=== PATIENT | female | born 1960 | race African-American/Black ===

== ENCOUNTER 2023-12-30 14:16 | Emergency (ER) | payer MEDICAID ==
[~2023-12-30] VITALS: Ht 170.2 cm; Wt 112.0 kg
[2023-12-30 14:44] LABS: EOSINOPHILS % 3.7 % (0.0-5.0); HEMATOCRIT. 26.7 % (36.0-48.0); LYMPHOCYTES % 27.3 % (20.0-50.0); MEAN CORPUSCULAR HEMOGLOBIN 29.4 pg (28.0-32.0); MEAN CORPUSCULAR HGB CONC 29.9 g/dL (31.0-37.0); MEAN CORPUSCULAR VOLUME 98.2 fL (81.0-99.0); MEAN PLATELET VOLUME 7.4 fl (7.4-10.4); MONOCYTES % 6.6 % (2.0-8.0); NEUTROPHILS % 61.4 % (40.0-76.0); PLATELET 215 x1000/uL (130-400); RED BLOOD CELL COUNT 2.72 mill/uL (4.2-5.4); RED CELL DISTRIBUTION WIDTH 22.1 % (11.6-14.6)
[2023-12-30 14:46] LABS: ADD RBC MORPHOLOGY YES; DIFFERENTIAL COMMENT 1
[2023-12-30 14:52] LABS: CHLORIDE 105 mEq/L (98-107); POTASSIUM 3.5 mEq/L (3.5-5.1); SODIUM 139 mEq/L (136-145)
[2023-12-30 14:53] LABS: CARBON DIOXIDE 27 mEq/L (21-32)
[2023-12-30 14:55] LABS: INR 1.1; PROTHROMBIN TIME 12.3 sec (9.6-11.0)
[2023-12-30 14:58] LABS: CREATININE 0.7 mg/dL (0.6-1.0); GLUCOSE 119 mg/dL (70-105)
[2023-12-30 15:00] LABS: ALANINE AMINOTRANSFERASE 25 IU/L (10-49); ALBUMIN 3.2 g/dL (3.2-4.8); ASPARTATE AMINOTRANSFERASE 68 IU/L (<34); BILIRUBIN TOTAL 0.3 mg/dL (0.1-1.0); TROPONIN I HIGH SENSITIVITY 5 ng/L (3.0-34)
[2023-12-30 15:01] LABS: PROTEIN TOTAL 6.8 g/dL (6.0-8.3)
[2023-12-30 15:16] LABS: UREA NITROGEN BLOOD < 5 mg/dL (9-23)
[2023-12-30 16:39] LABS: ANISOCYTOSIS 1+; PLATELET ESTIMATE NORMAL
[2023-12-30 18:24] VITALS: PULSE 80; RESP 20; O2SAT 100
[2023-12-30] MEDS: ALBUTEROL (0.5%) 2.5MG/0.5ML NEB HHN ONE (18:24)
[2023-12-30 20:35] VITALS: BP 106/84; PULSE 88; RESP 16; TEMP 98.2
[2023-12-30] MEDS ORDERED: IOHEXOL-350 100 ML BOTTLE ONE (23:05)
== END 2023-12-30 20:49 | disposition home or self-care (01) ==
LOC: ER 14:16
DX: R60.9 Edema, unspecified (principal); R06.00 Dyspnea, unspecified; I50.9 Heart failure, unspecified; J44.9 Chronic obstructive pulmonary disease, unspecified; I25.2 Old myocardial infarction
CPT/HCPCS: 80053; 83880; 85025; 85610; 84484; 36415; 71045; 71275; 94640; 93005; 99285; Q9967; Z7610 ×5